=== PATIENT | male | born 1955 | race Caucasian/White ===

== ENCOUNTER 2022-05-17 16:04 | Outpatient (REF) | payer MEDICARE, OTHER, SELFPAY ==
--- NOTE | 2022-05-17 15:15 | TONSIL_PTH ---
PATIENT: Enrique Rodriguez LOC: [facility] U#:[id number] AGE/SX: 66/M ROOM: RE05/17/[address]: Keke Yi : 1955 BED: DIS: 05/17/2022 SPEC #: [id number] RECD: 05/18/22 12:51 STATUS: ONUR REQ #: [id number] LAUREN: 05/17/22 15:[address]: Keke Yi DEPT: Surgical Specimen RECD BY: Jaylene Interiano ENTERED: 05/18/22 12:54 SP TYPE: TONSIL OTHR DR: Jacinda Hopson Tissues: 1 - TONSIL AGE 17 & OVER Procedures: GROSS AND MICRO LEVEL 4 P16 IPEX Comments: [id number]
== END 2022-05-17 16:05 | disposition home or self-care (01) ==
LOC: LBN 16:04
PROVIDERS: PCP Nurse Practitioner Family; Referring Provider Otolaryngology; Visit Provider Registered Nurse Maternal Newborn
DX: C09.9 Malignant neoplasm of tonsil, unspecified (principal); Z87.891 Personal history of nicotine dependence
CPT/HCPCS: 88305; 88342; 88304

== ENCOUNTER → 2022-11-20 03:28 | Outpatient (CLI) | payer MEDICARE, OTHER, SELFPAY ==
--- NOTE | 2022-11-20 08:15 | DI.MRI_ITS ---
Exam(s) MR IAC BRAIN WO/W EXAM: MR IAC BRAIN WO/W CLINICAL HISTORY: asymmetrical hearing loss, vertigo,h90.3,r42. TECHNIQUE: Multiplanar multisequence MRI of the brain and internal auditory canals was performed. CONTRAST MATERIAL: IV Contrast: 17 mL of Magnevist contrast administered. COMPARISON: CT CT CTA HEAD/NECK W/ AND/OR WO CONT from 04/30/2022 FINDINGS: VENTRICLES AND EXTRA AXIAL SPACES: Normal in size and morphology for the patient's age. HEMORRHAGE: None. CEREBRAL PARENCHYMA: Tiny focus of restricted diffusion in the right frontal lobe white matter could indicate an acute or subacute lacunar infarct. Small focus high signal is seen on FLAIR images in thi s location. No additional lesions.. No evidence of of mass. MIDLINE SHIFT: None. BRAINSTEM/CEREBELLUM: Normal. CALVARIUM: Normal. ENHANCEMENT: No suspicious enhancement identified. VISUALIZED PARANASAL SINUSES/MASTOIDS: Clear. ORBITS: Unremarkable. IAC/CP ANGLE: The internal auditory canals are within normal limits. The cerebellar pontine angles ar e unremarkable. No enhancing lesions are seen. Visualized portions of the cranial nerves appear withi n normal limits. OTHER FINDINGS: Partially empty sella. IMPRESSION: Tiny focus of high signal in the right frontal lobe white matter with restricted diffusion could karen joy subacute lacunar infarct. Territory canals unremarkable. Partially empty sella. DATA REPOSITORY:
[2022-11-20] MEDS: Gadoterate meglumine 20 ML VIAL IVP (14:08)
[2022-11-20] MEDS: Normal Saline Flush 10 ML SYR IJ (14:09)
== END ==
PROVIDERS: PCP Nurse Practitioner Family; Visit Provider Registered Nurse Maternal Newborn
DX: H90.3 Sensorineural hearing loss, bilateral (principal); R42 Dizziness and giddiness
CPT/HCPCS: 70553

== ENCOUNTER → 2024-02-20 10:43 | Outpatient (BNVA) | payer MEDICARE, OTHER, SELFPAY | PROVIDERS: PCP Nurse Practitioner Family; Referring Provider Nurse Practitioner Family; Visit Provider Student in an Organized Health Care Education/Training Program | DX: M19.011 Primary osteoarthritis, right shoulder (principal); M19.012 Primary osteoarthritis, left shoulder | CPT/HCPCS: 99203 ==

== ENCOUNTER 2024-04-03 00:45 | Outpatient (CLI) | payer MEDICARE, OTHER, SELFPAY ==
--- NOTE | 2024-04-03 15:15 | DI.RAD_ITS ---
Exam(s) RF JOINT INJ. FLUORO GUID RAD EXAM: RF JOINT INJ. FLUORO GUID RAD CLINICAL HISTORY: R SHOULDER PAIN,fluoro guided injection,m19.011. The Patient has had persistent r ight shoulder pain. Noninvasive measures have been tried. To serve as both diagnostic and therapeut ic, an injection under fluoroscopy was recommended. The risks of the procedure were discussed with [facility] Orthopedic provider and the patient elected to proceed. TECHNIQUE: 2D and realtime digital imaging was performed. CONTRAST MATERIAL: Water soluble contrast was utilized. COMPARISON: No exams were available for comparison FINDINGS: The Patient was greeted in the fluoroscopy room. The correct side was identified and the consent was reviewed with the patient and was signed. The patient was properly positioned on the fluoroscopy ta ble. The right shoulderwas then prepped and draped. The right shoulder injection starting point was identified by the bony landmarks and fluoroscopy. The skin and soft tissue in the tract of the inje ction was anesthetized with 1% Bupivacaine. A spinal needle was then inserted into the glenohumeral joint at the level of the right shoulder under fluoroscopic guidance. A small amount of Omnipaque so lution was injected to confirm intraarticular placement. Once confirmed, the right shoulder was inje cted with 5cc of a solution containing 0.5% Bupivacaiine and 40 mg of Depo-Medrol. A bandaid was yamila marquez on the injection site. The patient tolerated the procedure well and left the department in good condition. IMPRESSION: Successful right shoulder injection. RADIATION DOSE DELIVERED: Ka,r=3.41 mGy
[2024-04-03] MEDS: Normal Saline - Diluent 50 ML VIAL IJ (15:42)
[2024-04-03] MEDS: Omnipaque 300 MG/ML 10 ML BTL IJ (15:42)
[2024-04-03] MEDS: Bupivacaine 0.5% Pres-Free 10 ML VIAL IJ ×2 (15:43→15:44)
[2024-04-03] MEDS: methylPREDNISolone ACETATE 40 MG/ML VIAL IM ×2 (15:44→15:45)
--- NOTE | 2024-04-03 15:50 | DI.RAD_ITS ---
Exam(s) RF JOINT INJ. FLUORO GUID RAD EXAM: RF JOINT INJ. FLUORO GUID RAD CLINICAL HISTORY: L SHOULDER PAIN,fluoro guided injection,m19.012. The Patient has had persistent l eft shoulder pain. Noninvasive measures have been tried. To serve as both diagnostic and therapeuti c, an injection under fluoroscopy was recommended. The risks of the procedure were discussed with [facility] Orthopedic provider and the patient elected to proceed. TECHNIQUE: 2D and realtime digital imaging was performed. CONTRAST MATERIAL: Water soluble contrast was utilized. COMPARISON: No exams were available for comparison FINDINGS: The Patient was greeted in the fluoroscopy room. The correct side was identified and the consent was reviewed with the patient and was signed. The patient was properly positioned on the fluoroscopy ta ble. The left shoulderwas then prepped and draped. The left shoulder injection starting point was i dentified by the bony landmarks and fluoroscopy. The skin and soft tissue in the tract of the inject ion was anesthetized with 1% Bupivacaine. A spinal needle was then inserted into the glenohumeral praveena int at the level of the left shoulder under fluoroscopic guidance. A small amount of Omnipaque solut ion was injected to confirm intraarticular placement. Once confirmed, the left shoulder was injected with 5cc of a solution containing 0.5% Bupivacaiine and 40 mg of Depo-Medrol. A bandaid was placed on the injection site. The patient tolerated the procedure well and left the department in good cond ition. IMPRESSION: Successful left shoulder injection. RADIATION DOSE DELIVERED: Ka,r=2.56 mGy
== END 2024-04-03 01:05 ==
LOC: DI 00:45
PROVIDERS: PCP Nurse Practitioner Family; Visit Provider Student in an Organized Health Care Education/Training Program
DX: M19.011 Primary osteoarthritis, right shoulder (principal); M19.012 Primary osteoarthritis, left shoulder
CPT/HCPCS: 20610; 77002; J0665; J1010

== ENCOUNTER 2024-12-23 10:47 | Outpatient (REF) | payer MEDICARE, OTHER, SELFPAY ==
[2024-12-23 19:35] LABS: ALT 20 U/L (10-49); AST 25 U/L (<34); Albumin 4.5 g/dL (3.4-5.0); Alkaline Phosphatase 94 U/L (46-116); Anion Gap 2.2 mmol/L (3-11); BUN 14 mg/dL (9-23); Bilirubin, Total 0.40 mg/dL (0.2-1.2); CO2 27.8 mmol/L (20.0-31.0); Calcium 9.3 mg/dL (8.3-10.6); Chloride 111 mmol/L (98-107); Glucose 91 mg/dL (74-106); Potassium 4.4 mmol/L (3.5-5.1); Sodium 141 mmol/L (136-145); Total Protein 7.1 g/dL (5.7-8.2)
== END 2024-12-23 10:48 | disposition home or self-care (01) ==
LOC: NCHCN 10:47
PROVIDERS: PCP Nurse Practitioner Family; Visit Provider Nurse Practitioner Family
DX: I10 Essential (primary) hypertension (principal)
CPT/HCPCS: 80053